=== PATIENT | female | born 1980 | race Two or more races ===

== ENCOUNTER → 2025-01-01 | Outpatient (CLI) | payer OTHER, SELFPAY ==
--- NOTE | 2025-01-01 16:24 | XR_ITS ---
Examination: Abdominal series 3 views including upright PA chest TECHNIQUE: Upright PA chest AP upright AP supine abdomen 3 views Exam date and time: January 01, 2025 1628 hours INDICATIONS: Lower abdominal pain beginning one week ago. FINDINGS: Normal heart size Lungs are clear. Surgical clips upper right abdomen Moderate stool in the right colon No obstruction IMPRESSION: Moderate stool in the right colon, no obstruction
== END | disposition home or self-care (01) ==
PROVIDERS: PCP Physician Assistant Medical; Referring Provider Registered Nurse Pediatrics; Visit Provider Registered Nurse Pediatrics
DX: K59.00 Constipation, unspecified (principal)
CPT/HCPCS: 74022

== ENCOUNTER 2025-03-01 08:47 | Outpatient (AMB) | payer OTHER, SELFPAY ==
[2025-03-01 08:52] VITALS: BP 143/94; PULSE 93; RESP 18; TEMP 36.8; O2SAT 98; BMI 33.7
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
== END 2025-03-01 10:14 | disposition home or self-care (01) ==
LOC: HODAHC 08:47
PROVIDERS: Supervising Provider Internal Medicine; Visit Provider Student in an Organized Health Care Education/Training Program
DX: Z76.89 Persons encountering health services in other specified circumstances (principal); R03.0 Elevated blood-pressure reading, without diagnosis of hypertension; Z71.3 Dietary counseling and surveillance; Z68.33 Body mass index [BMI] 33.0-33.9, adult
CPT/HCPCS: 99213; G0463